=== PATIENT | female | born 1995 | race Caucasian/White ===

== ENCOUNTER 2017-05-14 14:19 | Emergency (ER) | payer OTHER ==
[2017-05-14 14:47] VITALS: BP 114/57; PULSE 83; RESP 16; TEMP 98; O2SAT 100
[2017-05-14] MEDS ORDERED: Absorbable Gelatin Sponge Size 12-7 TP ONE (15:21)
[2017-05-14] MEDS ORDERED: Absorbable Gelatin Sponge Size 12-7 ONE (15:28)
--- NOTE | 2017-05-14 15:33 | ED PDOC ---
Upper Extremity Pain/Injury Time Seen by Provider: 05/14/17 14:50 Chief Complaint (Nursing): Finger,Hand,&Wrist Chief Complaint (Provider): Finger,Hand,&Wrist History Per: Patient History/Exam Limitations: no limitations Onset/Duration Of Symptoms: Days (x 2 days) Current Symptoms Are (Timing): Still Present Additional Complaint(s): 21 y/o right handed female presents to the ED for evaluation of laceration on the left index finger, happened yesterday around 5pm using a food slicer. patient went to the urgent care and was referred here today. Patient has active bleeding from the wound. Denies any further medical complaints. Vaccinations UTD. Past Medical History Reviewed: Historical Data, Nursing Documentation, Vital Signs Vital Signs: Last Vital Signs Temp 98.0 F 05/14/17 14:44 Pulse 83 05/14/17 14:44 Resp 16 05/14/17 14:44 BP 114/57 L 05/14/17 14:44 Pulse Ox 100 05/14/17 14:44 - Family History Family History: States: No Known Family Hx - Home Medications Home Medications: Ambulatory Orders Medication Instructions Recorded Cephalexin [Keflex] 500 mg PO QID #20 capsule 05/14/17 - Allergies Allergies/Adverse Reactions: Allergies Allergy/AdvReac Type Severity Reaction Status Date / Time No Known Allergies Allergy Verified 05/14/17 14:44 Review of Systems ROS Statement: Except As Marked, All Systems Reviewed And Found Negative (As per HPI, otherwise negative) Skin: Positive for: Other (Laceration on the left index finger) Physical Exam - Reviewed Nursing Documentation Reviewed: Yes Vital Signs Reviewed: Yes - Physical Exam Appears: Positive for: Well, Non-toxic, No Acute Distress Head Exam: Positive for: ATRAUMATIC, NORMAL INSPECTION, NORMOCEPHALIC Skin: Positive for: Normal Color, Warm, Dry, Rash (Linear avulsion noted on volar aspect of distilled left index finger) Eye Exam: Positive for: Normal appearance ENT: Positive for: Normal ENT Inspection Neck: Positive for: Normal, Supple Cardiovascular/Chest: Positive for: Regular Rate, Rhythm. Negative for: Murmur Respiratory: Positive for: Normal Breath Sounds. Negative for: Respiratory Distress Back: Positive for: Normal Inspection Extremity: Positive for: Normal ROM. Negative for: Deformity Neurologic/Psych: Positive for: Alert, Oriented (x3) - ECG O2 Sat by Pulse Oximetry: 100 (RA) Pulse Ox Interpretation: Normal Medical Decision Making Medical Decision Making: Time: 15:21 Plan: Gelatin Sponge 12-7 1spg TP Time: 15:50 Upon provider reevaluation patient is feeling better, is medically stable, and requires no further treatment in the ED at this time. Patient will be discharged home with Rx for Cephalaxin 500mg PO. Counseling was provided and all questions were answered regarding diagnosis. Patient has been referred to [facility]. There is agreement to discharge plan. Return if symptoms persist or worsen. Clinical Impression: Finger Avulsion Scribe Attestation: Documented by Joaquim Colunga acting as a scribe for LIBRADO Candelario. Scribe Attestation: All medical record entries made by the Scribe were at my direction and personally dictated by me. I have reviewed the chart and agree that the record accurately reflects my personal performance of the history, physical exam, medical decision making, and the department course for this patient. I have also personally directed, reviewed, and agree with the discharge instructions and disposition. Disposition - Clinical Impression Clinical Impression: Finger avulsion - Patient ED Disposition Is Patient to be Admitted: No - Disposition Referrals: [facility] [Outside] Disposition: Routine/Home Disposition Time: 15:50 Condition: FAIR Additional Instructions: F/U WITH ED OR CLINIC IN 24-48 HOURS FOR EVALUATION OF FINGERTIP Prescriptions: Cephalexin [Keflex] 500 mg PO QID #20 capsule Instructions: Skin Avulsion (ED) Forms: [employer] (Maori)
== END 2017-05-14 15:54 | disposition home or self-care (01) ==
LOC: H.ER 14:19
DX: S61.211A Laceration without foreign body of left index finger without damage to nail, initial encounter (principal); W26.8XXA Contact with other sharp object(s), not elsewhere classified, initial encounter; Y92.89 Other specified places as the place of occurrence of the external cause

== ENCOUNTER 2017-05-16 11:59 | Emergency (ER) | payer OTHER ==
[2017-05-16 12:03] VITALS: BMI 19.6
[2017-05-16 12:05] VITALS: BP 103/56; PULSE 62; RESP 16; TEMP 98.3; O2SAT 100
--- NOTE | 2017-05-16 12:35 | ED PDOC ---
HPI: Wound Care - HPI Time Seen by Provider: 05/16/17 12:23 Chief Complaint (Nursing): Wound Check History Per: Patient Exam Limitations: no limitations Onset/Duration Of Symptoms: Days (2) Current Symptoms Are (Timing): Still Present Severity: None Additional History Per: Patient Additional Complaint(s): 21 y/o female here for wound check for laceration on the left index finger. She was seen at that and a gel sponge was placed, and the patient started on an Cephalaxin 500mg PO which she has been taking. She has been doing well and denies any complaint including fever, chills, or discharge from the site. Past Medical History Reviewed: Historical Data, Nursing Documentation, Vital Signs Vital Signs: Last Vital Signs Temp 98.3 F 05/16/17 12:04 Pulse 62 05/16/17 12:04 Resp 16 05/16/17 12:04 BP 103/56 L 05/16/17 12:04 Pulse Ox 100 05/16/17 12:04 - Medical History PMH: No Chronic Diseases Denies: Chronic Kidney Disease - Surgical History Surgical History: No Surg Hx - Family History Family History: States: No Known Family Hx - Home Medications Home Medications: Ambulatory Orders Medication Instructions Recorded Cephalexin [Keflex] 500 mg PO QID #20 capsule 05/14/17 - Allergies Allergies/Adverse Reactions: Allergies Allergy/AdvReac Type Severity Reaction Status Date / Time No Known Allergies Allergy Verified 05/14/17 14:44 Review of Systems Constitutional: Negative for: Fever, Chills Skin: Positive for: Lesions Physical Exam - Reviewed Nursing Documentation Reviewed: Yes Vital Signs Reviewed: Yes - Physical Exam Appears: Positive for: Well, Non-toxic Head Exam: Positive for: ATRAUMATIC, NORMAL INSPECTION, NORMOCEPHALIC Skin: Positive for: Normal Color (wound on the left index finger is clean, dry, and intact. There are no cardinal signs of infection. ), Warm, Dry Eye Exam: Positive for: Normal appearance ENT: Positive for: Normal ENT Inspection Neck: Positive for: Normal Cardiovascular/Chest: Positive for: Other (neusovascularly intact left hand) Respiratory: Negative for: Accessory Muscle Use, Respiratory Distress - ECG O2 Sat by Pulse Oximetry: 100 Medical Decision Making Medical Decision Making: Time: 12:32p Initial impression: Wound Check * Gauze was removed and the wound appears clean, dry and intact. Wound care instructions given. Patient instructed to continue the antibiotic to completion. ~ Scribe Attestation: Documented by~Abbey Morales, acting as a scribe for LIBRADO Mohan. Provider Scribe Attestation: All medical record entries made by the Scribe were at my direction and personally dictated by me. I have reviewed the chart and agree that the record accurately reflects my personal performance of the history, physical exam, medical decision making, and the department course for this patient. I have also personally directed, reviewed, and agree with the discharge instructions and disposition. Disposition - Clinical Impression Clinical Impression: Encounter for wound re-check - Patient ED Disposition Is Patient to be Admitted: No - Disposition Disposition: Routine/Home Disposition Time: 12:58 Condition: GOOD Instructions: Chronic Wound Care (ED) Forms: [employer] (Greek)
== END 2017-05-16 12:59 | disposition home or self-care (01) ==
LOC: H.ER 11:59
DX: Z48.00 Encounter for change or removal of nonsurgical wound dressing (principal)